=== PATIENT | male | born 1990 | race Caucasian/White ===

== ENCOUNTER 2022-10-06 01:16 | Emergency (ER) | payer SELFPAY ==
[~2022-10-06 01:16] MED LIST: BACTRIM DS 8001 TA1 PO; CEPHALEXIN500 MG PO; CIPROFLOXACIN500 MG PO; HYDROCODONE BIT1 T11 PO; IBU800 MG PO; IBUPROFEN600 MG PO; KEFLEX500 M1 PO; KEFLEX500 MG PO; MOTRIN800 MG PO; NAPROSYN500 MG PO; NORCO 325 MG-101 TAB PO; NORCO 325 MG-51 TAB PO; SEPTDS PO; ULTRAM50 MG PO; VIBRAMYCIN100 MG PO
[2022-10-06 02:10] LABS: BASO % 0.4 % (0.0-1.0); EOS # 0.4 10*3/uL (0.0-0.4); EOS % 5.6 % (1.0-4.0); HEMATOCRIT 42.5 % (42.0-52.0); LYMPH # 2.9 10*3/uL (1.3-4.4); LYMPH % 41.7 % (27.0-41.0); MEAN CELL VOLUME 85.5 fl (80.0-94.0); MEAN CORPUSCULAR HGB 29.2 pg (27.0-31.0); MEAN CORPUSCULAR HGB CONC 34.1 g/dl (33.0-37.0); MEAN PLATELET VOLUME 9.5 fl (9.6-12.3); MONO # 0.6 10*3/uL (0.1-1.0); MONO % 9.1 % (3.0-9.0); NEUT % 42.9 % (47.0-73.0); PLATELET COUNT AUTOMATED 250 10*3/uL (130-400); RED BLOOD COUNT 4.97 10*6/uL (4.50-5.90); WHITE BLOOD COUNT 6.9 10*3/uL (4.8-10.8)
[2022-10-06 02:42] LABS: ALKALINE PHOSPHATASE 62 U/L (46-116); BUN 9 mg/dl (9-23); CHLORIDE 107 mmol/L (98-107); POTASSIUM 3.6 mmol/L (3.4-5.1); SGPT/ALT 82 U/L (10-49); TOTAL PROTEIN 6.4 gm/dL (6.0-8.0)
[2022-10-06 03:21] LABS: BILIRUBIN Negative (Negative); BLOOD 1+ (Negative); CLARITY Clear (Clear); COLOR Yellow (Yellow); GLUCOSE Negative (Negative); KETONE Negative (Negative); LEUKO ESTERASE 1+ (Negative); NITRITE Negative (Negative); PH 5.5 (4.5-8.0)
[2022-10-06 03:36] LABS: RBC 21-30 rbc/hpf (0-2); WBC 16-20 wbc/hpf (0-5)
== END 2022-10-06 08:16 | disposition home or self-care (01) ==
LOC: ED 01:16
PROVIDERS: Emergency Medicine
DX: N20.1 Calculus of ureter (principal)